=== PATIENT | male | born 1945 | race Caucasian/White ===

== ENCOUNTER 2016-07-21 | Outpatient (CLI) | payer OTHER | END 2016-07-21 06:17 | disposition critical access hospital (66) | CPT/HCPCS: A0425; A0427 ==

== ENCOUNTER 2016-07-21 06:49 | Observation (INO) | payer OTHER ==
[2016-07-21] MEDS ORDERED: SODIUM CHLORIDE 0.9% 1,000 ML IV ONE ×2 (06:59→08:43)
[2016-07-21] MEDS ORDERED: ACETAMINOPHEN 325 MG TABLET PO STA (06:59)
[2016-07-21] MEDS ORDERED: ACETAMINOPHEN 500 MG TABLET PO ONE (07:02)
[2016-07-21] MEDS ORDERED: diltiaZEM INJ 5 MG/ML VIAL IVP STA (07:35)
[2016-07-21] MEDS ORDERED: diltiaZEM INJ 5 MG/ML VIAL ONE (07:41)
[2016-07-21] MEDS ORDERED: OSELTAMIVIR 75 MG CAPSULE PO STA (08:48)
[2016-07-21] MEDS ORDERED: OSELTAMIVIR 75 MG CAPSULE PO ONE (08:50)
[2016-07-21] MEDS ORDERED: ONDANSETRON ODT 4 MG TABLET TL PRN (08:59)
[2016-07-21] MEDS ORDERED: ACETAMINOPHEN 325 MG TABLET PO PRN (08:59)
[2016-07-21] MEDS ORDERED: SODIUM CHLORIDE FLUSH 0.9% 10 ML SYRINGE IVP PRN (08:59)
[2016-07-21] MEDS ORDERED: ONDANSETRON 4 MG/2 ML VIAL IVP PRN (08:59)
[2016-07-21] MEDS ORDERED: HYDROcod/ACETAM 5/325 MG TABLET PO PRN (08:59)
[2016-07-21] MEDS: POLYETHYLENE GLYCOL 3350 17 GM PACKET PO SCH (11:23)
[2016-07-21] MEDS: SODIUM CHLORIDE 0.9% 1,000 ML IV SCH ×2 (11:33→21:14)
[2016-07-21] MEDS: SODIUM CHLORIDE FLUSH 0.9% 10 ML SYRINGE IVP SCH ×2 (11:33→21:15)
[2016-07-21] MEDS: NEUTRA-PHOS 250 MG TABLET PO SCH (18:53)
[2016-07-21] MEDS: OSELTAMIVIR 75 MG CAPSULE PO SCH (21:14)
[2016-07-22] MEDS: SODIUM CHLORIDE 0.9% 1,000 ML IV SCH (05:59)
[2016-07-22] MEDS: SODIUM CHLORIDE FLUSH 0.9% 10 ML SYRINGE IVP SCH (05:59)
[2016-07-22] MEDS: POLYETHYLENE GLYCOL 3350 17 GM PACKET PO SCH (08:25)
[2016-07-22] MEDS: OSELTAMIVIR 75 MG CAPSULE PO SCH (08:25)
[2016-07-22] MEDS: NEUTRA-PHOS 250 MG TABLET PO SCH (08:25)
[2016-07-22] MEDS ORDERED: levoFLOXacin 250 MG TABLET PO SCH (09:00)
[2016-07-22] MEDS ORDERED: POTASSIUM CHLORIDE 20 MEQ TABLET PO SCH (09:00)
[2016-07-22] MEDS ORDERED: ATENOLOL 25 MG TABLET PO SCH (11:30)
== END 2016-07-22 11:17 | disposition home or self-care (01) ==
DX: I95.1 Orthostatic hypotension (principal); E86.0 Dehydration; J10.1 Influenza due to other identified influenza virus with other respiratory manifestations; I48.91 Unspecified atrial fibrillation; R82.99 Other abnormal findings in urine; E87.1 Hypo-osmolality and hyponatremia; I10 Essential (primary) hypertension; Z87.891 Personal history of nicotine dependence; E83.39 Other disorders of phosphorus metabolism; Z79.899 Other long term (current) drug therapy; R06.02 Shortness of breath
CPT/HCPCS: 36415; 71020; 80053; 81001; 82550; 83605; 83690; 83735; 83880; 84100; 84443; 84484; 85025; 85610; 85730; 87040; 87086; 87275; 87276; 93005; 93010; 93306; 96361; 96374; 99284; 99285; A9270; G0378

== ENCOUNTER 2017-08-07 11:26 | Outpatient (CLI) | payer OTHER ==
--- NOTE | 2017-08-07 17:30 | XRAY Report ---
COMPLETE CERVICAL SPINE: 08/07/2017 CLINICAL INDICATION: Numbness, tingling. FINDINGS: AP, lateral, oblique, odontoid views of the cervical spine demonstrate moderate degenerative disk and facet disease. There is bilateral osseous neural foraminal narrowing from C4 through C7. There is no evidence of acute fracture or subluxation. The prevertebral soft tissues are unremarkable. IMPRESSION: MODERATE DEGENERATIVE CHANGES, WITH BILATERAL OSSEOUS NEURAL FORAMINAL NARROWING. TD: 08/07/2017 17:30
== END 2017-08-07 11:27 | disposition home or self-care (01) ==
LOC: DI.S 11:26
PROVIDERS: ATTEND Nurse Practitioner Family
DX: M47.892 Other spondylosis, cervical region (principal); M50.30 Other cervical disc degeneration, unspecified cervical region
CPT/HCPCS: 72050

== ENCOUNTER 2017-09-07 07:48 | Outpatient (CLI) | payer MEDICARE, OTHER ==
[2017-09-07 10:33] LABS: BUN - BLOOD UREA NITROGEN 21 mg/dL (6-20); CALCIUM 8.8 mg/dL (8.5-10.3); CARBON DIOXIDE - CO2 24 mmol/L (21-32); CHLORIDE 103 mmol/L (101-111); CHOL/HDL RATIO 3.7 (<5.0); CHOLESTEROL 148 mg/dL; CREATININE 0.8 mg/dL (0.6-1.2); GFR - MDRD 95 (>89); GLUCOSE 107 mg/dL (70-100); HDL CHOLESTEROL 40 mg/dL; LDL CHOLESTEROL,CALCULATED 94 mg/dL; LDL/HDL RATIO 2.4 (<3.6); SODIUM 133 mmol/L (135-145); VLDL CHOLESTEROL 14 mg/dL
[2017-09-07 10:38] LABS: HB2 TOTAL 13.8 g/dL; HEMOGLOBIN A1C 0.49 g/dL; HEMOGLOBIN A1C % 5.4 % (4.6-6.2)
== END 2017-09-07 07:49 | disposition home or self-care (01) ==
LOC: LAB.F 07:48
PROVIDERS: ATTEND Family Medicine
DX: I48.91 Unspecified atrial fibrillation (principal); R73.01 Impaired fasting glucose; E78.5 Hyperlipidemia, unspecified
CPT/HCPCS: 36415; 80048; 80061; 83036; 83721; 83880

== ENCOUNTER 2017-09-26 12:17 | Outpatient (CLI) | payer MEDICARE, OTHER ==
--- NOTE | 2017-09-26 15:38 | MRI Report ---
EXAM: MRI CERVICAL SPINE WITHOUT CONTRAST EXAM DATE: 09/26/2017 01:20 PM. CLINICAL HISTORY: CERVICAL DISC DISORDER W RADICULOPATHY, UNSP CERVI. COMPARISONS: Radiographs 08/07/2017. TECHNIQUE: Multiplanar, multisequence T1-weighted and fluid-sensitive sequences of the cervical spine without contrast. Other: None. FINDINGS: Neurologic Structures: The visualized posterior fossa structures are unremarkable. No signal abnormal ity in the visualized spinal cord. Alignment: No scoliosis or spondylolisthesis. Bone Marrow: No fracture. No destructive bone lesions. Interspace Levels/Facets: C2-C3: Annular disk bulge. Mild degenerative facet arthropathy. Small right uncinate hypertrophy. Min imal right foraminal narrowing. C3-C4: Annular disk bulge with broad-based superimposed left foraminal disk protrusion and osteophyte formation with uncinate ridging. Mild degenerative facet arthropathy. Mild effacement of thecal sac. Moderate left and minimal right foraminal stenosis. C4-C5: Mild disk height loss. Annular disk bulge with broad-based foraminal protrusions and osteophyt e formation without hemorrhage. Mild degenerative facet arthropathy. Mild central canal stenosis. Mod erate left greater than right foraminal stenosis. C5-C6: Mild disk height loss. Annular disk bulge with broad-based central protrusion. Uncinate hypert rophy and mild degenerative facet arthropathy. Mild central canal stenosis. Severe bilateral foramina l stenosis. C6-C7: Disk height loss. Annular disk bulge with broad-based left greater than right paracentral and foraminal protrusions, uncinate hypertrophy and mild facet arthropathy. Mild effacement of the thecal sac. Moderate bilateral foraminal stenosis. C7-T1: Moderate degenerative facet arthropathy. No stenosis. Musculature: Normal. No edema or fatty atrophy. Other: The paravertebral and prevertebral soft tissues are normal. IMPRESSION: 1. Multilevel cervical degenerative disk and facet arthropathy. 2. C3-C4 moderate left foraminal stenosis. 3. C4-C5 mild central canal stenosis. Moderate left greater than right foraminal stenosis. 4. C5-C6 mild central canal stenosis. Severe bilateral foraminal stenosis. 5. C6-C7 moderate bilateral foraminal stenosis. [facility] Referring Provider Line: [phone] SITE ID: [id number]
== END 2017-09-26 12:18 | disposition home or self-care (01) ==
LOC: DI 12:17
PROVIDERS: ATTEND Family Medicine
DX: M50.21 Other cervical disc displacement, high cervical region (principal); M50.31 Other cervical disc degeneration, high cervical region; M47.892 Other spondylosis, cervical region
CPT/HCPCS: 72141

== ENCOUNTER 2018-09-23 08:00 | Outpatient (CLI) | payer MEDICARE, OTHER ==
[2018-09-23 18:11] LABS: BASOPHILS % (AUTO) 0.8 %; EOSINOPHILS # (AUTO) 0.2 10^3/uL (0.0-0.7); EOSINOPHILS % (AUTO) 3.1 %; HGB - HEMOGLOBIN 14.4 g/dL (14.0-18.0); LYMPHOCYTES # (AUTO) 1.4 10^3/uL (1.5-3.5); LYMPHOCYTES % (AUTO) 22.8 %; MEAN CORPUSCULAR HEMOGLOBIN 31.1 pg (27.0-31.0); MEAN CORPUSCULAR HGB CONC 33.2 g/dL (32.0-36.0); MEAN CORPUSCULAR VOLUME 93.5 fL (80.0-94.0); MEAN PLATELET VOLUME 8.5 fL (7.4-11.4); MONOCYTES # (AUTO) 0.7 10^3/uL (0.0-1.0); MONOCYTES % (AUTO) 11.3 %; NEUTROPHILS # (AUTO) 3.8 10^3/uL (1.5-6.6); PLT - PLATELET COUNT 194 10^3/uL (130-450); RED BLOOD COUNT 4.65 10^6/uL (4.70-6.10); RED CELL DISTRIBUTION WIDTH 14.4 % (12.0-15.0); WHITE BLOOD COUNT 6.2 x10^3/uL (4.8-10.8)
[2018-09-23 18:38] LABS: ALBUMIN 4.1 g/dL (3.2-5.5); ALBUMIN/GLOBULIN RATIO 1.2 (1.0-2.2); ALKALINE PHOSPHATASE 64 IU/L (42-121); ALT ALANINE AMINOTRANSFERASE 21 IU/L (10-60); AST ASPARTATE AMINOTRANSFERASE 21 IU/L (10-42); BUN - BLOOD UREA NITROGEN 22 mg/dL (6-20); CALCIUM 9.2 mg/dL (8.5-10.3); CARBON DIOXIDE - CO2 25 mmol/L (21-32); CHLORIDE 104 mmol/L (101-111); CHOLESTEROL 162 mg/dL; GFR - MDRD 73 (>89); GLUCOSE 108 mg/dL (70-100); HDL CHOLESTEROL 41 mg/dL; LDL CHOLESTEROL,CALCULATED 105 mg/dL; LDL/HDL RATIO 2.6 (<3.6); SODIUM 138 mmol/L (135-145); TOTAL PROTEIN 7.5 g/dL (6.7-8.2); VLDL CHOLESTEROL 16 mg/dL
== END 2018-09-23 23:59 | disposition home or self-care (01) ==
LOC: LAB.S 08:00
PROVIDERS: ATTEND Nurse Practitioner Family
DX: E78.5 Hyperlipidemia, unspecified (principal); Z12.5 Encounter for screening for malignant neoplasm of prostate; I10 Essential (primary) hypertension
CPT/HCPCS: 36415; 80061; G0103; 80053; 83721; 84153; 84443; 85025

== ENCOUNTER 2019-08-16 23:07 | Outpatient (CLI) | payer MEDICARE, OTHER | END 2019-08-16 23:08 | disposition critical access hospital (66) | LOC: EMS 23:07 | PROVIDERS: ATTEND Surgery | DX: R09.89 Other specified symptoms and signs involving the circulatory and respiratory systems (principal) | CPT/HCPCS: A0425; A0427 ==

== ENCOUNTER 2019-08-16 23:45 | Emergency (ER) | payer MEDICARE, OTHER ==
[2019-08-17 00:19] LABS: BASOPHILS % (AUTO) 0.6 %; EOSINOPHILS # (AUTO) 0.2 10^3/uL (0.0-0.7); EOSINOPHILS % (AUTO) 3.1 %; HGB - HEMOGLOBIN 12.6 g/dL (14.0-18.0); MEAN CORPUSCULAR HEMOGLOBIN 30.6 pg (27.0-31.0); MEAN CORPUSCULAR HGB CONC 33.3 g/dL (32.0-36.0); MEAN CORPUSCULAR VOLUME 91.7 fL (80.0-94.0); MEAN PLATELET VOLUME 8.8 fL (7.4-11.4); MONOCYTES # (AUTO) 0.9 10^3/uL (0.0-1.0); MONOCYTES % (AUTO) 12.9 %; NEUTROPHILS # (AUTO) 3.9 10^3/uL (1.5-6.6); PLT - PLATELET COUNT 190 10^3/uL (130-450); RED BLOOD COUNT 4.12 10^6/uL (4.70-6.10); RED CELL DISTRIBUTION WIDTH 13.6 % (12.0-15.0)
[2019-08-17 00:32] LABS: ALBUMIN 3.4 g/dL (3.2-5.5); ALBUMIN/GLOBULIN RATIO 1.1 (1.0-2.2); BILIRUBIN,TOTAL 0.6 mg/dL (0.2-1.0); CALCIUM 8.2 mg/dL (8.5-10.3); CREATININE 1.1 mg/dL (0.6-1.2); TOTAL PROTEIN 6.6 g/dL (6.7-8.2)
--- NOTE | 2019-08-17 00:40 | XRAY Report ---
Reason: Chest pain Procedure Date: 08/17/2019 Accession Number: [id number] / [id number] Procedure: XR - Chest 1 View X-Ray CPT Code: 10103 Final Report FULL RESULT: EXAM: CHEST RADIOGRAPHY EXAM DATE: 08/17/2019 12:11 AM. CLINICAL HISTORY: Chest pain. COMPARISON: CHEST 2 VIEW PA/LAT 07/21/2016 7:43 AM. TECHNIQUE: 1 view. FINDINGS: Lungs/Pleura: No focal opacities evident. No pleural effusion. No pneumothorax. Mediastinum: Within exam limitations, the cardiomediastinal contour is normal. Other: None. IMPRESSION: Stable negative single view chest. [facility]
--- NOTE | 2019-08-17 00:41 | ED Physician Documentation ---
History of Present Illness - Stated complaint Stated Complaint: AFIB - Chief complaint Chief Complaint: Cardiac - History obtained from History obtained from: Patient, EMS - History of Present Illness Timing: Prior to arrival Pain level max: 0 Pain level now: 0 Improved by: rest Worsened by: exertion - Additonal information Additional information: NAVI, awoke shortly [employer] with irregular palpitations which he recognized as atrial fibrillation from previous episodes. denies any other symptoms including dyspnea, chest pain. Review of Systems Constitutional: reports: Reviewed and negative Cardiac: reports: Palpitations. denies: Chest pain / pressure, Pedal edema, Calf pain Respiratory: reports: Reviewed and negative GI: reports: Reviewed and negative PD PAST MEDICAL HISTORY - Past Medical History Cardiovascular: Hypertension - Past Surgical History Past Surgical History: No - Present Medications Home Medications: Ambulatory Orders Medication Instructions Recorded Confirmed Magnesium Oxide [Magnesium] 250 mg PO DAILY PRN 07/21/16 07/21/16 atenoloL [Atenolol] 25 mg ORAL DAILY 07/21/16 07/21/16 Oseltamivir [Tamiflu] 75 mg PO BID #8 capsule 07/22/16 - Allergies Allergies/Adverse Reactions: Allergies Allergy/AdvReac Type Severity Reaction Status Date / Time No Known Drug Allergies Allergy Verified 08/16/19 23:56 - Social History Does the pt smoke?: No Smoking Status: Never smoker Does the pt drink ETOH?: Yes Does the pt have substance abuse?: No - Immunizations Immunizations are current?: Yes Immunizations: TDAP current <10years - POLST Patient has POLST: No PD ED PE NORMAL - Vitals Vital signs reviewed: Yes - General General: Alert and oriented X 3, No acute distress, Well developed/nourished - Neck Neck: Supple, no meningeal sign - Cardiac Cardiac: No murmur, No gallop, No rub - Respiratory Respiratory: No respiratory distress, Clear bilaterally - Abdomen Abdomen: Soft, Non tender PD ED PE EXPANDED - Cardiac Cardiac: Irregularly irregular Results - Vitals Vitals: Oxygen O2 Source Room air - EKG (time done) No standard instances Rate: Rate (enter#) (112), Tachy Rhythm: Atrial fibrillation [place]: Normal QRS: Normal Ischemia: Normal ST segments #2 Rate: Rate (enter#) (83) Rhythm: NSR [place]: Normal Intervals: Normal [place] QRS: Normal Ischemia: Normal ST segments - Labs Labs: Laboratory Tests 08/16/19 08/16/19 08/16/19 00:13 00:13 00:13 WBC 7.0 RBC 4.12 L Hgb 12.6 L Hct 37.8 L MCV 91.7 MCH 30.6 MCHC 33.3 RDW 13.6 Plt Count 190 MPV 8.8 Neut # (Auto) 3.9 Lymph # (Auto) 2.0 [place] # (Auto) 0.9 Eos # (Auto) 0.2 Baso # (Auto) 0.0 Absolute Nucleated RBC 0.00 Nucleated RBC % 0.0 Sodium 134 L Potassium 4.1 Chloride 104 Carbon Dioxide 22 Anion Gap 8.0 BUN 22 H Creatinine 1.1 Estimated GFR (MDRD) 66 L Glucose 115 H Calcium 8.2 L Total Bilirubin 0.6 AST 14 ALT 14 Alkaline Phosphatase 65 Troponin I High Sens 23.6 H* Total Protein 6.6 L Albumin 3.4 Globulin 3.2 Albumin/Globulin Ratio 1.1 Lipase 24 - Rads (name of study) chest xray Radiology: Prelim report reviewed, See rad report PD MEDICAL DECISION MAKING - ED course Complexity details: reviewed results, re-evaluated patient, considered differential, d/w patient ED course: patient converted to NSR spontaneously during ED stay and this correlated with resolution of symptoms Departure - Departure Disposition: 01 Home, Self Care Clinical Impression: Atrial fibrillation Condition: Good Instructions: ED Afib Discharge Date/Time: 08/17/19 01:22
[2019-08-17 01:33] VITALS: BP 138/82
== END 2019-08-17 01:22 | disposition home or self-care (01) ==
LOC: EDUNIT# → ED 23:45
DX: I48.91 Unspecified atrial fibrillation (principal); I10 Essential (primary) hypertension
CPT/HCPCS: 36415; 71045; 80053; 83690; 84484; 85025; 93005; 99284

== ENCOUNTER 2020-02-07 08:36 | Emergency (ER) | payer MEDICARE, OTHER ==
[2020-02-07] MEDS ORDERED: PROCAINAMIDE 1,000 MG in SODIUM CHLORIDE 0.9% 240 ML IV STA (09:05)
[2020-02-07] MEDS ORDERED: SODIUM CHLORIDE 0.9% 1,000 ML IV STA (09:05)
--- NOTE | 2020-02-07 09:07 | ED Physician Documentation ---
PD HPI CHEST PAIN - Stated complaint Stated Complaint: IRREGULAR HEART RATE - Chief complaint Chief Complaint: Cardiac - History obtained from History obtained from: Patient (74-year-old gentleman with history of paroxysmal atrial fibrillation presents with palpitations and feeling off since last night. No associated chest pain or trouble breathing. They started about 10 PM last night. Feels like prior episodes of A. fib.) Review of Systems Ten Systems: 10 systems reviewed and negative Constitutional: denies: Fever, Chills Cardiac: denies: Chest pain / pressure, Pedal edema, Calf pain Respiratory: denies: Dyspnea, Cough, Hemoptysis, Wheezing GI: denies: Abdominal Pain, Nausea PD PAST MEDICAL HISTORY - Past Medical History Cardiovascular: Hypertension - Past Surgical History Past Surgical History: No - Present Medications Home Medications: Ambulatory Orders Medication Instructions Recorded Confirmed Magnesium Oxide [Magnesium] 250 mg PO DAILY PRN 07/21/16 07/21/16 atenoloL [Atenolol] 25 mg ORAL DAILY 07/21/16 07/21/16 Oseltamivir [Tamiflu] 75 mg PO BID #8 capsule 07/22/16 Losartan Potassium 25 mg PO DAILY #90 tablet 02/07/20 - Allergies Allergies/Adverse Reactions: Allergies Allergy/AdvReac Type Severity Reaction Status Date / Time No Known Drug Allergies Allergy Verified 02/07/20 08:54 - Social History Does the pt smoke?: No Smoking Status: Never smoker Does the pt drink ETOH?: Yes Does the pt have substance abuse?: No - Immunizations Immunizations are current?: Yes Immunizations: TDAP current <10years - POLST Patient has POLST: No PD ED PE NORMAL - Vitals Vital signs reviewed: Yes - General General: Alert and oriented X 3, No acute distress - HEENT HEENT: PERRL, EOMI - Neck Neck: Supple, no meningeal sign, No bony TTP - Cardiac Cardiac: Other (Irregularly irregular without murmur, rate controlled) - Respiratory Respiratory: No respiratory distress, Clear bilaterally - Abdomen Abdomen: Non tender - Back Back: No CVA TTP, No spinal TTP - Derm Derm: Normal color, Warm and dry - Extremities Extremities: No edema, No calf tenderness / cord - Neuro Neuro: Alert and oriented X 3, No motor deficit, No sensory deficit, Normal speech Results - Vitals Vitals: Vital Signs - 24 hr 08/02/07/20 02/07/20 08:40 09:30 10:00 Temperature 36.7 C Heart Rate 93 81 55 L Respiratory 15 21 20 Rate Blood Pressure 157/99 H 115/76 100/63 O2 Saturation 100 97 98 Oxygen O2 Source Room air - EKG (time done) 0849 Rate: Rate (enter#) (99) Rhythm: Atrial fibrillation [place]: Normal Ischemia: Non specific changes Computer interpretation: Agree with computer - Labs Labs: Laboratory Tests 02/07/20 02/07/20 02/07/20 09:20 09:20 09:20 WBC 6.7 RBC 4.29 L Hgb 13.4 L Hct 39.5 L MCV 92.1 MCH 31.2 H MCHC 33.9 RDW 13.9 Plt Count 195 MPV 8.6 Neut # (Auto) 4.0 Lymph # (Auto) 1.6 [place] # (Auto) 0.7 Eos # (Auto) 0.2 Baso # (Auto) 0.0 Absolute Nucleated RBC 0.00 Nucleated RBC % 0.0 Sodium 137 Potassium 4.5 Chloride 105 Carbon Dioxide 25 Anion Gap 7.0 BUN 24 H Creatinine 1.1 Estimated GFR (MDRD) 65 L Glucose 127 H Calcium 8.9 Magnesium 2.2 Total Bilirubin 0.4 AST 15 ALT 17 Alkaline Phosphatase 75 Total Protein 7.4 Albumin 3.9 Globulin 3.5 Albumin/Globulin Ratio 1.1 Lipase 28 TSH 2.60 PD MEDICAL DECISION MAKING - ED course ED course: 74-year-old gentleman presents with recurrent paroxysmal atrial fibrillation starting at 10 PM last night. He is rate controlled with the atenolol he is on already. Will start procainamide drip. 74-year-old gentleman with paroxysmal atrial fibrillation. He would be safe for cardioversion considering he is only been in it since 10:00 last night. He was administered procainamide drip with conversion. He also wanted to change his lisinopril to losartan given side effect of cough. Departure - Departure Disposition: 01 Home, Self Care Clinical Impression: Atrial fibrillation Qualifiers: Atrial fibrillation type: paroxysmal Qualified Code(s): I48.0 - Paroxysmal atrial fibrillation Condition: Good Record reviewed to determine appropriate education?: Yes Instructions: Atrial Fibrillation Dc Prescriptions: Losartan Potassium 25 mg PO DAILY #90 tablet Comments: You were seen today for atrial fibrillation. Procainamide converted you. Continue current medications but stop lisinopril for the cough, substituting losartan instead. Follow-up with your doctor within the week. Take least a baby aspirin a day until then, your chads BASC 2 score is 2 so discussed full anticoagulation with your physician.
[2020-02-07 09:37] LABS: BASOPHILS % (AUTO) 0.6 %; EOSINOPHILS # (AUTO) 0.2 10^3/uL (0.0-0.7); EOSINOPHILS % (AUTO) 3.3 %; HGB - HEMOGLOBIN 13.4 g/dL (14.0-18.0); LYMPHOCYTES # (AUTO) 1.6 10^3/uL (1.5-3.5); LYMPHOCYTES % (AUTO) 24.1 %; MEAN CORPUSCULAR HEMOGLOBIN 31.2 pg (27.0-31.0); MEAN CORPUSCULAR HGB CONC 33.9 g/dL (32.0-36.0); MEAN CORPUSCULAR VOLUME 92.1 fL (80.0-94.0); MEAN PLATELET VOLUME 8.6 fL (7.4-11.4); MONOCYTES # (AUTO) 0.7 10^3/uL (0.0-1.0); MONOCYTES % (AUTO) 10.9 %; NEUTROPHILS % (AUTO) 60.7 %; PLT - PLATELET COUNT 195 10^3/uL (130-450); RED BLOOD COUNT 4.29 10^6/uL (4.70-6.10); RED CELL DISTRIBUTION WIDTH 13.9 % (12.0-15.0); WHITE BLOOD COUNT 6.7 x10^3/uL (4.8-10.8)
[2020-02-07 09:53] LABS: ALBUMIN 3.9 g/dL (3.2-5.5); ALBUMIN/GLOBULIN RATIO 1.1 (1.0-2.2); BILIRUBIN,TOTAL 0.4 mg/dL (0.2-1.0); CALCIUM 8.9 mg/dL (8.5-10.3); CREATININE 1.1 mg/dL (0.6-1.2); MAGNESIUM 2.2 mg/dL (1.7-2.8); TOTAL PROTEIN 7.4 g/dL (6.7-8.2)
[2020-02-07 10:29] VITALS: BP 116/63
== END 2020-02-07 10:29 | disposition home or self-care (01) ==
LOC: ED 08:36
DX: I48.0 Paroxysmal atrial fibrillation (principal)
CPT/HCPCS: 36415; 80053; 83690; 83735; 84443; 85025; 93005; 96365; 99284; 99285; J2690

== ENCOUNTER 2020-03-03 00:10 | Outpatient (CLI) | payer MEDICARE, OTHER | END 2020-03-03 00:11 | disposition EMS.NT | LOC: EMS 00:10 | PROVIDERS: ATTEND Surgery | DX: I49.9 Cardiac arrhythmia, unspecified (principal) ==

== ENCOUNTER 2020-03-03 01:19 | Emergency (ER) | payer MEDICARE, OTHER ==
[2020-03-03 01:58] LABS: BASOPHILS # (AUTO) 0.1 10^3/uL (0.0-0.1); BASOPHILS % (AUTO) 0.7 %; EOSINOPHILS # (AUTO) 0.3 10^3/uL (0.0-0.7); EOSINOPHILS % (AUTO) 2.6 %; HGB - HEMOGLOBIN 13.3 g/dL (14.0-18.0); LYMPHOCYTES # (AUTO) 2.3 10^3/uL (1.5-3.5); LYMPHOCYTES % (AUTO) 22.2 %; MEAN CORPUSCULAR HEMOGLOBIN 30.7 pg (27.0-31.0); MEAN CORPUSCULAR HGB CONC 33.2 g/dL (32.0-36.0); MEAN CORPUSCULAR VOLUME 92.6 fL (80.0-94.0); MEAN PLATELET VOLUME 8.7 fL (7.4-11.4); MONOCYTES # (AUTO) 1.2 10^3/uL (0.0-1.0); MONOCYTES % (AUTO) 11.3 %; NEUTROPHILS # (AUTO) 6.4 10^3/uL (1.5-6.6); NEUTROPHILS % (AUTO) 62.7 %; PLT - PLATELET COUNT 211 10^3/uL (130-450); RED BLOOD COUNT 4.33 10^6/uL (4.70-6.10); RED CELL DISTRIBUTION WIDTH 13.6 % (12.0-15.0); WHITE BLOOD COUNT 10.2 x10^3/uL (4.8-10.8)
[2020-03-03 02:12] LABS: ALBUMIN 3.9 g/dL (3.2-5.5); ALBUMIN/GLOBULIN RATIO 1.1 (1.0-2.2); BILIRUBIN,TOTAL 0.6 mg/dL (0.2-1.0); CALCIUM 8.9 mg/dL (8.5-10.3); TOTAL PROTEIN 7.6 g/dL (6.7-8.2)
--- NOTE | 2020-03-03 02:27 | ED Physician Documentation ---
History of Present Illness - Stated complaint Stated Complaint: FAST HEART - Chief complaint Chief Complaint: Cardiac - History obtained from History obtained from: Patient - History of Present Illness Timing: Enter time (23:00), Today Pain level max: 0 Pain level now: 0 Improved by: no ameliorating factors Worsened by: no exacerbating factors - Additonal information Additional information: woke from sleep at approximately 11 PM tonight with irregular palpitations which he recognized as his paroxysmal atrial fibrillation; he has been seen in this ED twice before for this, most recently last month when he converted to NSR with procainamide. Denies chest pain, dyspnea. Review of Systems Cardiac: reports: Palpitations. denies: Chest pain / pressure, Pedal edema, Calf pain Respiratory: reports: Reviewed and negative GI: reports: Reviewed and negative PD PAST MEDICAL HISTORY - Past Medical History Cardiovascular: Hypertension - Past Surgical History Past Surgical History: No - Present Medications Home Medications: Ambulatory Orders Medication Instructions Recorded Confirmed Magnesium Oxide [Magnesium] 250 mg PO DAILY PRN 07/21/16 03/03/20 atenoloL [Atenolol] 25 mg ORAL DAILY 07/21/16 03/03/20 Oseltamivir [Tamiflu] 75 mg PO BID #8 capsule 07/22/16 03/03/20 Losartan Potassium 25 mg PO DAILY #90 tablet 02/07/20 03/03/20 - Allergies Allergies/Adverse Reactions: Allergies Allergy/AdvReac Type Severity Reaction Status Date / Time No Known Drug Allergies Allergy Verified 03/03/20 01:25 - Social History Does the pt smoke?: No Smoking Status: Never smoker Does the pt drink ETOH?: Yes Does the pt have substance abuse?: No - Immunizations Immunizations are current?: Yes Immunizations: TDAP current <10years - POLST Patient has POLST: No PD ED PE NORMAL - Vitals Vital signs reviewed: Yes - General General: Alert and oriented X 3, No acute distress, Well developed/nourished - HEENT HEENT: Moist mucous membranes - Neck Neck: Supple, no meningeal sign - Cardiac Cardiac: No murmur - Respiratory Respiratory: No respiratory distress, Clear bilaterally - Abdomen Abdomen: Soft, Non tender - Extremities Extremities: No edema PD ED PE EXPANDED - Cardiac Cardiac: Regular Rate, Irregularly irregular Results - Vitals Vitals: Vital Signs - 24 hr 03/03/20 03/03/2003/03/20 01:23 01:53 03:18 Temperature 36.7 C Heart Rate 80 111 H 91 Respiratory 18 16 18 Rate Blood Pressure 143/89 H 135/96 H 129/88 H O2 Saturation 98 99 99 03/03/20 04:20 Temperature Heart Rate 58 L Respiratory 16 Rate Blood Pressure 115/72 O2 Saturation 98 Oxygen O2 Source Room air - EKG (time done) No standard instances Rate: Rate (enter#) (97) Rhythm: Atrial fibrillation [place]: Normal Ischemia: Normal ST segments - Labs Labs: Laboratory Tests 03/03/20 03/03/20 03/03/20 01:40 01:40 01:40 WBC 10.2 RBC 4.33 L Hgb 13.3 L Hct 40.1 L MCV 92.6 MCH 30.7 MCHC 33.2 RDW 13.6 Plt Count 211 MPV 8.7 Neut # (Auto) 6.4 Lymph # (Auto) 2.3 [place] # (Auto) 1.2 H Eos # (Auto) 0.3 Baso # (Auto) 0.1 Absolute Nucleated RBC 0.00 Nucleated RBC % 0.0 Sodium 136 Potassium 4.2 Chloride 103 Carbon Dioxide 23 Anion Gap 10.0 BUN 27 H Creatinine 1.0 Estimated GFR (MDRD) 73 L Glucose 112 H Calcium 8.9 Total Bilirubin 0.6 AST 17 ALT 18 Alkaline Phosphatase 76 Troponin I High Sens 17.2 Total Protein 7.6 Albumin 3.9 Globulin 3.7 Albumin/Globulin Ratio 1.1 Lipase 25 PD MEDICAL DECISION MAKING - ED course Complexity details: reviewed old records, reviewed results, re-evaluated patient, considered differential, d/w patient ED course: presents due to palpitations that he recognized as similar to previous episodes of atrial fibrillation. Went to bed approximately 10 PM feeling well and woke 11 PM with this symptom. He is in atrial fibrillation with controlled rate (on beta-alfredo) and converts to NSR with IV procainamide, correlating with resolution of his symptoms. Departure - Departure Disposition: 01 Home, Self Care Clinical Impression: Atrial fibrillation Qualifiers: Atrial fibrillation type: paroxysmal Qualified Code(s): I48.0 - Paroxysmal atrial fibrillation Condition: Good Instructions: ED Afib Discharge Date/Time: 03/03/20 04:21
[2020-03-03] MEDS ORDERED: PROCAINAMIDE 1,000 MG in SODIUM CHLORIDE 0.9% 240 ML IV STA (02:42)
[2020-03-03] MEDS ORDERED: PROCAINAMIDE 1,000 MG/10 ML SYRINGE ONE (02:53)
[2020-03-03 04:21] VITALS: BP 115/72
--- NOTE | 2020-03-03 08:04 | XRAY Report ---
PROCEDURE: Chest 1 View X-Ray INDICATIONS: Chest pain TECHNIQUE: One view of the chest was acquired. COMPARISON: 10/16/2019 FINDINGS: Surgical changes and devices: None. Lungs and pleura: No pleural effusions or pneumothorax. Lungs are clear. Mediastinum: Mediastinal contours appear normal. Heart size is normal. Bones and chest wall: No suspicious bony lesions. Overlying soft tissues appear unremarkable. IMPRESSION: No acute cardiopulmonary disease process. Reviewed by: Audrey Feliciano MD, PhD on 03/03/2020 8:03 AM PDT Approved by: Audrey Feliciano MD, PhD on 03/03/2020 8:03 AM PDT Station ID: [id number]
== END 2020-03-03 04:21 | disposition home or self-care (01) ==
LOC: ED 01:19
DX: I48.0 Paroxysmal atrial fibrillation (principal)
CPT/HCPCS: 36415; 71045; 80053; 83690; 84484; 85025; 93005; 96365; 96366; 99284; 99285; J2690

== ENCOUNTER 2020-04-20 07:37 | Outpatient (CLI) | payer MEDICARE, OTHER | END 2020-04-20 07:38 | disposition home or self-care (01) | LOC: DI 07:37 | PROVIDERS: ATTEND Nurse Practitioner Family | DX: I48.91 Unspecified atrial fibrillation (principal); I51.7 Cardiomegaly | CPT/HCPCS: 93306 ==

== ENCOUNTER 2020-06-06 | Outpatient (CLI) | payer MEDICARE, OTHER | END 2020-06-06 00:52 | disposition EMS.NT ==

== ENCOUNTER 2020-06-07 11:28 | Emergency (ER) | payer MEDICARE, OTHER ==
--- NOTE | 2020-06-07 12:14 | ED Physician Documentation ---
History of Present Illness - Stated complaint Stated Complaint: ERRATIC PULSE - Chief complaint Chief Complaint: Cardiac - History obtained from History obtained from: Patient - History of Present Illness Timing: How many days ago (3) Pain level max: 0 Pain level now: 0 - Additonal information Additional information: 74-year-old male presents to the emergency department stating that he has had atrial fibrillation for the past 3 days. 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 He converted spontaneously in the waiting room. He is on xarelto. No chest pain, no shortness of breath. Nothing makes it better or worsen. Currently asymptomatic. Review of Systems Constitutional: denies: Fever, Chills Throat: denies: Sore throat Cardiac: reports: Palpitations. denies: Chest pain / pressure Respiratory: denies: Cough GI: denies: Abdominal Pain, Nausea, Vomiting : denies: Dysuria Skin: denies: Rash Musculoskeletal: denies: Neck pain, Back pain PD PAST MEDICAL HISTORY - Past Medical History Cardiovascular: Hypertension - Past Surgical History Past Surgical History: No - Present Medications Home Medications: Ambulatory Orders Medication Instructions Recorded Confirmed Magnesium Oxide [Magnesium] 250 mg PO DAILY PRN 07/21/16 03/03/20 atenoloL [Atenolol] 25 mg ORAL DAILY 07/21/16 03/03/20 Oseltamivir [Tamiflu] 75 mg PO BID #8 capsule 07/22/16 03/03/20 Losartan Potassium 25 mg PO DAILY #90 tablet 02/07/20 03/03/20 - Allergies Allergies/Adverse Reactions: Allergies Allergy/AdvReac Type Severity Reaction Status Date / Time No Known Drug Allergies Allergy Verified 06/07/20 11:41 - Social History Does the pt smoke?: No Smoking Status: Never smoker Does the pt drink ETOH?: Yes Does the pt have substance abuse?: No - Immunizations Immunizations are current?: Yes Immunizations: TDAP current <10years - POLST Patient has POLST: No PD ED PE NORMAL - Vitals Vital signs reviewed: Yes - General General: Alert and oriented X 3, No acute distress, Well developed/nourished - HEENT HEENT: PERRL, Moist mucous membranes - Neck Neck: Supple, no meningeal sign - Cardiac Cardiac: RRR, Strong equal pulses - Respiratory Respiratory: No respiratory distress, Clear bilaterally - Derm Derm: Warm and dry - Neuro Neuro: Alert and oriented X 3 - Psych Psych: Normal mood, Normal affect Results - Vitals Vitals: Vital Signs - 24 hr 06/07/20 11:41 Temperature 36.2 C L Heart Rate 66 Respiratory 20 Rate Blood Pressure 147/80 H O2 Saturation 99 Oxygen O2 Source Room air - EKG (time done) 1142 Rate: Rate (enter#) (63) Rhythm: NSR [place]: Normal Intervals: Normal [place] QRS: Normal Ischemia: Normal ST segments PD MEDICAL DECISION MAKING - ED course Complexity details: reviewed results, considered differential, d/w patient ED course: Patient spontaneously converted from atrial fibrillation. Otherwise asymptomatic. No current complaints. He will continue his current medications and follow-up with his doctor. Patient counseled regarding signs and symptoms for which I believe and urgent re-evaluation would be necessary. Patient with good understanding of and agreement to plan and is comfortable going home at this time This document was made in part using voice recognition software. While efforts are made to proofread this document, sound alike and grammatical errors may occur. Departure - Departure Disposition: 01 Home, Self Care Clinical Impression: Paroxysmal atrial fibrillation Condition: Good Instructions: ED Afib Follow-Up: FAIZAN DICKEY ARNP [Primary Care Provider] - As Needed Comments: Continue your current medications at home. You are not currently in atrial fibrillation. Return if you worsen.
[2020-06-07 12:17] VITALS: BP 139/86
== END 2020-06-07 12:41 | disposition home or self-care (01) ==
LOC: ED 11:28
DX: I48.0 Paroxysmal atrial fibrillation (principal); Z79.01 Long term (current) use of anticoagulants
CPT/HCPCS: 93005; 99283; 99284

== ENCOUNTER 2020-10-01 08:00 | Outpatient (CLI) | payer MEDICARE, OTHER ==
[2020-10-01 20:50] LABS: BILIRUBIN,URINE NEGATIVE (NEGATIVE); GLUCOSE, URINE (UA) NEGATIVE (NEGATIVE); KETONES,URINE (UA) NEGATIVE (NEGATIVE); LEUKOCYTE ESTERASE, URINE TRACE (NEGATIVE); NITRITE,URINE NEGATIVE (NEGATIVE); OCCULT BLOOD,URINE LARGE (NEGATIVE); PROTEIN,URINE 30 mg/dL (NEGATIVE); UROBILINOGEN,URINE 0.2 (NORMAL) E.U./dL (NORMAL)
[2020-10-01 21:01] LABS: CLARITY,URINE HAZY (CLEAR)
[2020-10-01 21:10] LABS: AMORPHOUS SEDIMENT,UR Few /LPF; BACTERIA,URINE Few /HPF (None Seen); SQUAMOUS EPITHELIAL CELL,UR RARE Squamous (<= Few)
== END 2020-10-01 23:59 | disposition home or self-care (01) ==
LOC: LAB.R 08:00
PROVIDERS: ATTEND Physician Assistant
DX: R31.0 Gross hematuria (principal)
CPT/HCPCS: 81001; 81003; 87086

== ENCOUNTER 2020-11-05 10:30 | Outpatient (CLI) | payer MEDICARE, OTHER | END 2020-11-05 23:59 | disposition home or self-care (01) | LOC: COV 10:30 | PROVIDERS: ATTEND Internal Medicine Cardiovascular Disease | DX: Z01.812 Encounter for preprocedural laboratory examination (principal); I11.9 Hypertensive heart disease without heart failure; I48.0 Paroxysmal atrial fibrillation; R31.9 Hematuria, unspecified; Z79.01 Long term (current) use of anticoagulants; I27.20 Pulmonary hypertension, unspecified; Z20.822 Contact with and (suspected) exposure to COVID-19 ==

== ENCOUNTER 2020-12-24 22:11 | Emergency (ER) | payer MEDICARE, OTHER ==
[2020-12-24 23:15] LABS: CLARITY,URINE CLOUDY (CLEAR); GLUCOSE, URINE (UA) 100 mg/dL (NEGATIVE); KETONES,URINE (UA) 15 mg/dL (NEGATIVE); LEUKOCYTE ESTERASE, URINE MODERATE (NEGATIVE); NITRITE,URINE POSITIVE (NEGATIVE); OCCULT BLOOD,URINE LARGE (NEGATIVE); PH,URINE 6.5 PH (5.0-7.5)
[2020-12-24 23:29] LABS: BILIRUBIN,URINE NEGATIVE (NEGATIVE); ICTOTEST,URINE NEGATIVE
[2020-12-24 23:30] LABS: AMORPHOUS SEDIMENT,UR Few /LPF; BACTERIA,URINE Moderate /HPF (None Seen); RBC,URINE TNTC /HPF (0-5); SQUAMOUS EPITHELIAL CELL,UR NONE SEEN (<= Few)
--- NOTE | 2020-12-25 00:14 | ED Physician Documentation ---
PD HPI MALE - Stated complaint Stated Complaint: CATH BLOCKED - Chief complaint Chief Complaint: Abd Pain - History obtained from History obtained from: Patient, Family - History of Present Illness Timing - onset: Today Timing - duration: Hours Timing - details: Abrupt onset, Still present Associated symptoms: Singleton problem PD HPI MALE CONTRIB FACTORS: Indwelling catheter Similar symptoms before: Has not had sx before Recently seen: Surgery - Additional information Additional information: 75-year-old male with the recent diagnosis of renal cell carcinoma has had cystoscopy done yesterday and following that a Singleton catheter was placed. He has been instructed to remove it tomorrow. He has been on Xarelto and he was off 48 hours before and is expecting to be off 40 hours after. Tonight he has no output from his Singleton catheter and he has become a bit uncomfortable. He is not otherwise ill he has not had a fever cough vomiting or diarrhea. Review of Systems Constitutional: denies: Fever Nose: denies: Congestion Throat: denies: Sore throat Cardiac: denies: Chest pain / pressure Respiratory: denies: Dyspnea, Cough GI: denies: Abdominal Pain, Nausea, Vomiting, Constipation, Diarrhea : reports: Singleton Problem Skin: denies: Rash Musculoskeletal: denies: Neck pain, Back pain, Extremity pain Neurologic: denies: Generalized weakness, Focal weakness, Numbness PD PAST MEDICAL HISTORY - Past Medical History Past Medical History: Yes Cardiovascular: Hypertension : Indwelling catheter, Other Other Past Medical History: Kidney CA - Past Surgical History Past Surgical History: Yes General: Other - Present Medications Home Medications: Ambulatory Orders Medication Instructions Recorded Confirmed atenoloL [Atenolol] 75 mg ORAL DAILY 07/21/16 12/24/20 Losartan Potassium 25 mg PO DAILY #90 tablet 02/07/20 12/24/20 Rivaroxaban [Xarelto] 20 mg PO DAILY 12/24/20 12/24/20 Sulfamethox/Trimeth 800/160 1 tablet PO BID 7 Days #14 tablet 12/25/20 [Bactrim Ds] - Allergies Allergies/Adverse Reactions: Allergies Allergy/AdvReac Type Severity Reaction Status Date / Time No Known Drug Allergies Allergy Verified 12/24/20 22:22 - Social History Does the pt smoke?: No Smoking Status: Never smoker Does the pt drink ETOH?: Yes Does the pt have substance abuse?: No - Immunizations Immunizations are current?: Yes Immunizations: TDAP current <10years - POLST Patient has POLST: No PD ED PE NORMAL - Vitals Vital signs reviewed: Yes (Hypertensive) - General General: Alert and oriented X 3, No acute distress, Well developed/nourished - HEENT HEENT: Atraumatic, PERRL, EOMI - Neck Neck: Supple, no meningeal sign - Respiratory Respiratory: No respiratory distress - Back Back: No CVA TTP, No spinal TTP - Derm Derm: Normal color, Warm and dry, No rash - Extremities Extremities: No deformity, No edema - Neuro Neuro: Alert and oriented X 3, freight tallier 2-12 intact, No motor deficit, No sensory deficit, Normal speech Eye Opening: Spontaneous Motor: Obeys Commands Verbal: Oriented GCS Score: 15 - Psych Psych: Normal mood, Normal affect Results - Vitals Vitals: Vital Signs - 24 hr 12/24/20 22:19 Temperature 37.1 C Heart Rate 64 Respiratory 18 Rate Blood Pressure 160/73 H O2 Saturation 99 Oxygen O2 Source Room air - Labs Labs: Laboratory Tests 12/24/20 23:05 Urine Color DK. ORANGE Urine Clarity CLOUDY Urine pH 6.5 Ur Specific [place] 1.025 Urine Protein Urine Glucose (UA) 100 H Urine Ketones 15 H Urine Occult Blood LARGE H Urine Nitrite POSITIVE H Urine Bilirubin NEGATIVE Urine Urobilinogen Ur Leukocyte Esterase MODERATE H Urine RBC TNTC H Urine WBC 4-5 Ur Squamous Epith Cells NONE SEEN Amorphous Sediment Few Urine Bacteria Moderate H Ur Microscopic Review INDICATED Urine Culture Comments INDICATED PD MEDICAL DECISION MAKING - ED course Complexity details: reviewed results, re-evaluated patient, considered differential, d/w patient, d/w family ED course: 75-year-old male with recent instrumentation has developed what appears to be clot retention and this is irrigated and relatively simply resolved. The urinalysis is concerning for the potential for infection with no squamous cells and positive for bacteria, leukocyte esterase and nitrate. There were no significant white blood cells present. My interpretation of the urinalysis and under the circumstances is requires treatment. He has had recent instrumentation. I have asked the patient to call our emergency back in 2 days time to inquire about the results of his culture. We will provide a prescription to the patient and today we will give him an injection of Rocephin. If the urine is positive for infection pathologically we will treat. Departure - Departure Disposition: 01 Home, Self Care Clinical Impression: Clot retention of urine UTI (urinary tract infection) Qualifiers: Urinary tract infection type: catheter-associated UTI Indwelling urinary catheter type: indwelling urethral catheter Encounter type: initial encounter Qualified Code(s): T83.511A - Infection and inflammatory reaction due to indwelling urethral catheter, initial encounter; N39.0 - Urinary tract infection, site not specified Condition: Stable Instructions: ED UTI Cystitis Male, ED Catheter Care Singleton Follow-Up: FAIZAN DICKEY ARNP [Primary Care Provider] - Prescriptions: Sulfamethox/Trimeth 800/160 [Bactrim Ds] 1 tablet PO BID 7 Days #14 tablet Comments: Today it appears you had some clot retention causing the Singleton to clogged. It appears this was relatively easily able to resolve this. There is evidence of infection on the urinalysis and you have been given an injection of Rocephin. We have written a prescription for antibiotic for urinary tract infection and you have a urine culture that is pending. Call back our emergency department in 2 days time and inquire about the results of the culture. If the culture is positive for a pathologic infection complete the antibiotic course. Follow-up with your urologist as planned.
[2020-12-25] MEDS ORDERED: cefTRIAXone 1 GM VIAL IM STA (00:16)
[2020-12-25] MEDS ORDERED: LIDOCAINE 1% 2 ML VIAL MC ONE (00:16)
[2020-12-25 01:01] VITALS: BP 150/68
== END 2020-12-25 00:55 | disposition home or self-care (01) ==
LOC: ED 22:11
DX: T83.091A Other mechanical complication of indwelling urethral catheter, initial encounter (principal); T83.511A Infection and inflammatory reaction due to indwelling urethral catheter, initial encounter; N39.0 Urinary tract infection, site not specified; Y84.6 Urinary catheterization as the cause of abnormal reaction of the patient, or of later complication, without mention of misadventure at the time of the procedure; Y73.2 Prosthetic and other implants, materials and accessory gastroenterology and urology devices associated with adverse incidents; C64.9 Malignant neoplasm of unspecified kidney, except renal pelvis; I10 Essential (primary) hypertension; Z79.01 Long term (current) use of anticoagulants
CPT/HCPCS: 51700; 51798; 81001; 81003; 87086; 99284